=== PATIENT | female | born 1955 | race Caucasian/White ===

== ENCOUNTER 2017-06-18 03:18 | Outpatient (CLI) | payer OTHER | END 2017-06-18 03:19 | disposition critical access hospital (66) | LOC: EMS 03:18 | PROVIDERS: ATTEND Surgery | DX: R11.10 Vomiting, unspecified (principal) | CPT/HCPCS: A0425; A0429 ==

== ENCOUNTER 2017-06-18 03:38 | Emergency (ER) | payer OTHER ==
[2017-06-18] MEDS ORDERED: SODIUM CHLORIDE 0.9% 1,000 ML IV ONE (04:01)
[2017-06-18 04:05] LABS: BASOPHILS % (AUTO) 0.3 %; EOSINOPHILS % (AUTO) 0.1 %; HGB - HEMOGLOBIN 15.2 g/dL (12.0-16.0); LYMPHOCYTES # (AUTO) 0.6 10^3/uL (1.5-3.5); LYMPHOCYTES % (AUTO) 4.3 %; MEAN CORPUSCULAR HEMOGLOBIN 30.1 pg (27.0-31.0); MEAN CORPUSCULAR HGB CONC 31.8 g/dL (32.0-36.0); MEAN CORPUSCULAR VOLUME 94.8 fL (81.0-99.0); MEAN PLATELET VOLUME 8.4 fL (7.9-10.8); MONOCYTES # (AUTO) 1.2 10^3/uL (0.0-1.0); NEUTROPHILS # (AUTO) 11.3 10^3/uL (1.5-6.6); NEUTROPHILS % (AUTO) 86.3 %; PLT - PLATELET COUNT 301 10^3/uL (130-450); RED BLOOD COUNT 5.03 10^6/uL (4.20-5.40); RED CELL DISTRIBUTION WIDTH 13.1 % (12.0-15.0); WHITE BLOOD COUNT 13.1 x10^3/uL (4.8-10.8)
--- NOTE | 2017-06-18 04:06 | ED Physician Documentation ---
PD HPI NVD - Stated complaint Stated Complaint: VOMITING, DIARRHEA, ABD PAIN - Chief complaint Chief Complaint: Abd Pain - History obtained from History obtained from: Patient - History of Present Illness Timing - onset: Enter time (23:30), Yesterday (06/17/17 (hours ago)) Timing - details: Abrupt onset Pain level now: 3 (abdominal cramping) Associated symptoms: Abdominal pain (cramping, intermittent) Improved by: Other (no ameliorating factors) Worsened by: Other (no apparent exacerbating factors) Recently seen: Not recently seen - Additonal information Additional information: sudden onset nausea, vomiting, diarrhea, and abdominal cramping 11:30 PM tonight while at home at rest. Had similar episode in the past which responded well to IV fluids and antinauseant given in another ED Review of Systems Constitutional: denies: Fever, Chills, Sweats Cardiac: reports: Reviewed and negative Respiratory: reports: Reviewed and negative GI: reports: Abdominal Pain, Nausea, Vomiting, Diarrhea : denies: Dysuria, Frequency PD PAST MEDICAL HISTORY - Past Medical History Past Medical History: No - Past Surgical History Past Surgical History: No - Present Medications Home Medications: Ambulatory Orders Medication Instructions Recorded Confirmed Diphenoxylate/Atropine [Lomotil] 1 each PO QID PRN #14 tablet 06/18/17 Ondansetron Odt [Zofran] 4 mg TL Q6H PRN #14 tablet 06/18/17 - Allergies Allergies/Adverse Reactions: Allergies Allergy/AdvReac Type Severity Reaction Status Date / Time No Known Drug Allergies Allergy Verified 06/18/17 04:02 - Social History Does the pt smoke?: No Smoking Status: Never smoker Does the pt drink ETOH?: Yes Does the pt have substance abuse?: No - Immunizations Immunizations are current?: Yes - POLST Patient has POLST: No PD ED PE NORMAL - Vitals Vital signs reviewed: Yes - General General: Alert and oriented X 3, No acute distress, Well developed/nourished - HEENT HEENT: Other (tacky/pasty mucous membranes) - Neck Neck: Supple, no meningeal sign - Cardiac Cardiac: RRR, No murmur - Respiratory Respiratory: No respiratory distress, Clear bilaterally - Abdomen Abdomen: Soft, Non tender, Non distended, Other (hyperactive BS) - Back Back: No CVA TTP - Derm Derm: Normal color, Warm and dry Results - Vitals Vitals: Vital Signs - 24 hr 06/18/17 06/18/17 06/18/17 03:38 05:00 05:35 Temperature 36.5 C 36.9 C Heart Rate 66 72 74 Respiratory 20 16 16 Rate Blood Pressure 117/71 102/56 L 110/70 O2 Saturation 100 100 100 Oxygen O2 Source Room air - Labs Labs: Laboratory Tests 06/18/17 06/18/17 03:50 03:50 WBC 13.1 H RBC 5.03 Hgb 15.2 Hct 47.7 H MCV 94.8 MCH 30.1 MCHC 31.8 L RDW 13.1 Plt Count 301 MPV 8.4 Neut # 11.3 H Lymph # 0.6 L [place] # 1.2 H Eos # 0.0 Baso # 0.0 Absolute Nucleated RBC 0.00 Nucleated RBC % 0.0 Sodium 142 Potassium 3.8 Chloride 101 Carbon Dioxide 28 Anion Gap 13.0 BUN 20 Creatinine 0.9 Estimated GFR (MDRD) 63 L Glucose 128 H Calcium 9.5 Total Bilirubin 0.5 AST 35 ALT 33 Alkaline Phosphatase 68 Total Protein 8.5 H Albumin 5.3 Globulin 3.2 Albumin/Globulin Ratio 1.7 Lipase 27 PD MEDICAL DECISION MAKING - ED course Complexity details: reviewed results, re-evaluated patient, considered differential, d/w patient ED course: reevaluated after IV NS x 1 liter, lomotil PO and zofran IV; appears to be in NAD, MMM, and reports resolution of symptoms except mild residual nausea Departure - Departure Disposition: 01 Home, Self Care Clinical Impression: Gastroenteritis Condition: Good Instructions: ED Gastroenteritis Viral Follow-Up: Jelani Santos MD [Primary Care Provider] - (2-3 days if symptoms have not resolved) Prescriptions: Diphenoxylate/Atropine [Lomotil] 1 each PO QID PRN #14 tablet PRN Reason: Diarrhea Ondansetron Odt [Zofran] 4 mg TL Q6H PRN #14 tablet PRN Reason: Nausea / Vomiting Discharge Date/Time: 06/18/17 05:40
[2017-06-18 04:15] LABS: ALBUMIN 5.3 g/dL (3.2-5.5); ALBUMIN/GLOBULIN RATIO 1.7 (1.0-2.2); BILIRUBIN,TOTAL 0.5 mg/dL (0.2-1.0); CALCIUM 9.5 mg/dL (8.5-10.3); CREATININE 0.9 mg/dL (0.4-1.0); TOTAL PROTEIN 8.5 g/dL (6.7-8.2)
[2017-06-18] MEDS ORDERED: DIPHENOX/ATROPINE 2.5/0.025 MG TABLET PO STA (04:38)
[2017-06-18] MEDS ORDERED: ONDANSETRON 4 MG/2 ML VIAL IVP STA (04:38)
[2017-06-18] MEDS ORDERED: ONDANSETRON ODT 4 MG TABLET TL STA ×2 (05:32→05:37)
[2017-06-18 05:44] VITALS: BP 110/70
== END 2017-06-18 05:40 | disposition home or self-care (01) ==
LOC: EDUNIT# → ED 03:38 → SUPCPDRO 03:38 → ED 05:40
DX: K52.9 Noninfective gastroenteritis and colitis, unspecified (principal)
CPT/HCPCS: 36415; 80053; 83690; 85025; 96361; 96374; 99284; A9270; Q0162